=== PATIENT | female | born 2000 | race Caucasian/White ===

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

== ENCOUNTER 2024-11-14 01:08 | Emergency (ER) | payer OTHER ==
[~2024-11-14] VITALS: Ht 162.6 cm; Wt 58.1 kg
[~2024-11-14 01:08] MED LIST: DICLOFENAC SODI75 MG PO
== END 2024-11-14 04:09 | disposition home or self-care (01) ==
LOC: ER 01:10
DX: J06.9 Acute upper respiratory infection, unspecified (principal)

== ENCOUNTER 2025-06-13 04:06 | Emergency (ER) | payer OTHER ==
[~2025-06-13] VITALS: Ht 160 cm; Wt 59.0 kg
[2025-06-13] MEDS ORDERED: FAMOTIDINE/PF 20 MG in 0.9 % SODIUM CHLORIDE 8 ML IV PUSH STA (04:23)
[2025-06-13] MEDS ORDERED: ONDANSETRON HCL 2 MG/ML VIAL IV ONE (04:30)
[2025-06-13] MEDS ORDERED: KETOROLAC TROMETHAMINE 30 MG VIAL IV ONE (04:30)
[2025-06-13] MEDS ORDERED: 0.9 % SODIUM CHLORIDE 1,000 ML IV SCH (04:30)
[2025-06-13 04:56] LABS: BASO % 0.4 % (0.1-1.2); EOS # 0.03 (0.04-0.54); EOS % 0.2 % (0.7-7.0); LYMPH # 1.78 (1.18-3.74); LYMPH % 14.3 % (19.3-53.1); MEAN PLATELET VOLUME 9.90 fl (9.4-12.4); MONO # 0.34 (0.24-0.82); MONO % 2.7 % (4.7-12.5); NEUT # 10.21 (1.56-6.13); NEUT % 82.2 % (34.0-71.1); RED CELL DISTRIBUTION WIDTH 12.8 % (11.6-14.4)
[2025-06-13] MEDS ORDERED: METHYLPREDNISOLONE SOD SUCC 125 MG VIAL IV ONE (05:30)
[2025-06-13] MEDS ORDERED: METOCLOPRAMIDE HCL 10 MG in DEXTROSE 5 % IN WATER 50 ML IV ONE (05:30)
[2025-06-13 06:18] LABS: ALT/SGPT 32.0 U/L (12-78); AST/SGOT 29.0 U/L (15-37); BILIRUBIN TOTAL 0.47 mg/dL (0.3-1.2); BUN CREA RATIO 16.0 (7.0-25.0); CREATININE SERUM 1.01 mg/dL (0.55-1.02); GFR 67.92; GLOBULINA 2.6 G/DL (2.4-3.5); GLUCOSE FASTING 103.0 mg/dL (65-100); OSMOLALITY SERUM 294.0 MOSM/KG (275-295)
[2025-06-13] MEDS ORDERED: PEPCID AC20 MG PO (06:39)
[2025-06-13] MEDS ORDERED: ONDANSETRON ODT8 MG PO (06:39)
== END 2025-06-13 07:29 | disposition home or self-care (01) ==
LOC: ER 04:10
PROVIDERS: General Practice
DX: R10.9 Unspecified abdominal pain (principal); R11.2 Nausea with vomiting, unspecified